=== PATIENT | male | born 1945 | race Two or more races ===

== ENCOUNTER → 2017-12-26 | Emergency (ER) | payer OTHER ==
[~2017-12-26] VITALS: Ht 170.2 cm; Wt 88.5 kg
[~2017-12-26] MED LIST: ORPH100T PO; TRAMADOL HCL-AP1 TAB PO
== END | disposition home or self-care (01) ==
LOC: ER 15:15
DX: R19.7 Diarrhea, unspecified (principal); R55 Syncope and collapse

== ENCOUNTER 2020-03-10 09:16 | Outpatient (CLI) | payer OTHER | END 2020-03-10 09:18 | disposition home or self-care (01) | LOC: NUCLEAR 09:16 | PROVIDERS: ATTEND Internal Medicine Cardiovascular Disease | DX: I10 Essential (primary) hypertension (principal); I50.9 Heart failure, unspecified; J44.9 Chronic obstructive pulmonary disease, unspecified ==

== ENCOUNTER → 2020-08-03 | Outpatient (CLI) | payer OTHER | END | disposition home or self-care (01) | LOC: TOM 10:12 | PROVIDERS: ATTEND Psychiatry & Neurology Clinical Neurophysiology | DX: I63.30 Cerebral infarction due to thrombosis of unspecified cerebral artery (principal) ==

== ENCOUNTER 2021-10-18 11:06 | Outpatient (CLI) | payer OTHER | END 2021-10-18 11:11 | disposition home or self-care (01) | LOC: RAD 11:06 | PROVIDERS: ATTEND Internal Medicine Cardiovascular Disease | DX: M12.9 Arthropathy, unspecified (principal) ==

== ENCOUNTER 2023-08-26 12:11 | Outpatient (CLI) | payer OTHER | END 2023-08-26 12:20 | disposition home or self-care (01) | LOC: RAD 12:11 | PROVIDERS: ATTEND Physical Medicine & Rehabilitation | DX: S42.301A Unspecified fracture of shaft of humerus, right arm, initial encounter for closed fracture (principal); W19.XXXA Unspecified fall, initial encounter; M25.522 Pain in left elbow; M25.551 Pain in right hip; M16.11 Unilateral primary osteoarthritis, right hip ==